=== PATIENT | female | born 1965 | race Two or more races ===

== ENCOUNTER 2018-09-25 08:51 | Observation (INO) | payer OTHER ==
[2018-09-25] MEDS ORDERED: PHENAZOPYRIDINE HCL 200 MG TAB PO ONE (11:52)
[2018-09-25] MEDS ORDERED: ACETAMINOPHEN 500 MG TAB PO ONE (11:52)
[2018-09-25] MEDS ORDERED: ceFAZolin 2 GM/DEXTROSE 100 ML IV ONE (11:52)
[2018-09-25] MEDS ORDERED: GABAPENTIN 300 MG CAP PO ONE (11:52)
[2018-09-25] MEDS ORDERED: LIDOCAINE 1% 2 ML INJ ID PRN (11:53)
[2018-09-25] MEDS ORDERED: LR 1,000 ML IV ONE (11:53)
[2018-09-25] MEDS ORDERED: BUPIVACAINE/EPI 0.5% 30 ML SDV ONE ×2 (12:52→13:01)
--- NOTE | 2018-09-25 12:59 | PDHPUP ---
History & Physical Update H&P update statement: This history and physical update is based on an assessment of the patient which was completed after admission or registration (within 24 hours), but prior to the surgery/procedure. H&P update: H&P reviewed & patient examined, no change in patient's condition since H&P completed
[2018-09-25] MEDS ORDERED: MIDAZOLAM 2 MG/2 ML VIAL ONE (14:53)
--- NOTE | 2018-09-25 14:53 | PDANEPAE ---
ANE History of Present Illness menorrhagia and endometriosis, here for robotic assist for ablation and hysterectomy ANE Past Medical History - Cardiovascular History Hx Hypertension: Yes Hx Arrhythmias: No Hx Chest Pain: No Hx Coronary Artery / Peripheral Vascular Disease: No Hx CHF / Valvular Disease: No Hx Palpitations: No - Pulmonary History Hx COPD: No Hx Asthma/Reactive Airway Disease: No Hx Recent Upper Respiratory Infection: No Hx Oxygen in Use at Home: No Hx Sleep Apnea: No Sleep Apnea Screening Result - Last Documented: Positive Pulmonary History Comment: SINUS INFECTION 06/2018 TREATED WITH ANTIBIOTICS - Neurologic History Hx Cerebrovascular Accident: No Hx Seizures: No Hx Dementia: No - Endocrine History Hx Diabetes: Yes Endocrine History Comment: NIDDM. HYPOTHYROID/GRAVES DX - Renal History Hx Renal Disorders: Yes Renal History Comment: UA INCONT/URGENCY - Liver History Hx Hepatic Disorders: No - Neurological & Psychiatric Hx Hx Neurological and Psychiatric Disorders: Yes Neurological / Psychiatric History Comment: DEPRESSION. SITUATIONAL ANXIETY - Cancer History Hx Cancer: No - Congenital Disorder History Hx Congenital Disorders: No - GI History Hx Gastrointestinal Disorders: Yes Gastrointestinal History Comment: REFLUX. HIATIAL HERNIA - Other Health History Other Health History: ENDOMETROSIS. MISSING TEETH - Chronic Pain History Chronic Pain: Yes (LT KNEE,ABDOMINAL DISCOMFORT) - Surgical History Prior Surgeries: LT KNEE SCOPE 2017. REMVL FATTY TUMOR FROM BACK. OVARIAN CYSTS ANE Review of Systems Review of Systems: - Exercise capacity METS (RN): 4 METS ANE Patient History - Allergies Allergies/Adverse Reactions: Penicillins Allergy (Verified 09/12/18 10:48) RASH/SWELLING Sulfa (Sulfonamide Antibiotics) Allergy (Verified 09/12/18 10:48) Vomiting - Home Medications Home Medications: Carboxymethylcellulose 1% [Refresh Celluvisc (*)] 1 drop EACHEYE DAILY PRN 09/12 [Last Taken 09/22/18] Cholecalciferol Vit D3 [Vitamin D3 (*)] 1,000 units PO DAILY 09/12/18 [Last Taken 09/24/18] Cyanocobalamin [Vitamin B12 (*)] 2,500 mcg PO DAILY 09/12/18 [Last Taken ] Esomeprazole Mag Trihydrate [Nexium] 40 mg PO DAILY 09/12/18 [Last Taken 07:30] Hydrochlorothiazide [HCTZ (*)] 25 mg PO DAILY 09/12/18 [Last Taken 09/24/18] Ibuprofen/Pseudoephedrine HCl [Advil Cold & Sinus Caplet] 1 each PO DAILY PRN [Last Taken 09/15/18] Levothyroxine [Synthroid 112 mcg (*)] 112 mcg PO DAILY06 09/12/18 [Last Taken 07:30] Lisinopril [Zestril 10 mg (*)] 10 mg PO DAILY 09/12/18 [Last Taken 09/25/18 07: 30] Naproxen Sodium [Aleve 220 MG (*)] 220 mg PO BID PRN 09/12/18 [Last Taken ] glyBURIDE [Glyburide] 5 mg PO BID 09/12/18 [Last Taken 09/24/18] metFORMIN HCL [Glucophage 500 mg (*)] 500 mg PO BIDMEAL 09/12/18 [Last Taken 03/06] traZODone [traZODONE 100MG (*)] 100 mg PO HS 09/12/18 [Last Taken 09/24/18] - NPO status NPO Since - Liquids (Date): 09/25/18 NPO Since - Liquids (Time): 10:00 NPO Since - Solids (Date): 09/24/18 NPO Since - Solids (Time): 20:30 - Smoking Hx Smoking Status: Former smoker ANE Labs/Vital Signs - Vital Signs Blood Pressure: 131/86 Heart Rate: 76 Respiratory Rate: 24 O2 Sat (%): 97 Height: 167.64 cm Weight: 115.666 kg ANE Physical Exam - Airway Neck exam: FROM Mallampati Score: Class 2 Mouth exam: normal dental/mouth exam - Pulmonary Pulmonary: no respiratory distress, no rales or rhonchi - Cardiovascular Cardiovascular: regular rate and rhythym, no murmur, rub, or gallop - ASA Status ASA Status: III ANE Anesthesia Plan Anesthesia Plan: general endotracheal anesthesia Total IV Anesthesia: No
[2018-09-25] MEDS ORDERED: MIDAZOLAM 2 MG/2 ML VIAL IVP ONE (14:55)
[2018-09-25] MEDS ORDERED: LIDOCAINE 2% 2 ML INJ ONE (15:04)
[2018-09-25] MEDS ORDERED: PROPOFOL 200 MG/20 ML VIAL ONE (15:05)
[2018-09-25] MEDS ORDERED: fentaNYL 100 MCG/2 ML INJ ONE ×3 (15:05→16:57)
[2018-09-25] MEDS ORDERED: NALOXONE HCL 0.4 MG/ML INJ IVP PRN (16:05)
[2018-09-25] MEDS ORDERED: PROMETHAZINE HCL 25 MG/ML INJ IVP PRN (16:05)
[2018-09-25] MEDS ORDERED: ONDANSETRON 4 MG/2 ML VIAL IVP PRN ×2 (16:05→16:41)
[2018-09-25] MEDS ORDERED: HYDROmorphONE/DILAUDID 1 MG/ML INJ IVP PRN ×2 (16:05→16:41)
[2018-09-25] MEDS ORDERED: ONDANSETRON 4 MG/2 ML VIAL ONE (16:18)
--- NOTE | 2018-09-25 16:40 | POSTOPPROG ---
Post Op Note Date of Operation: 09/25/18 Surgeon: Oscar Ospina Assistant Passenger Locomotive Engineer: Nava Das Anesthesia: GET(General Endotracheal) Pre-op Diagnosis: heavy and painful menses, stress incontinenece Post-op Diagnosis: Same + endometriosis Procedure: Robotic hyst/BSO, excise endo, bilat ureterolysis, Retropubic sling Findings: No ureteral or bladder injury seen Inf/Abcess present in the surg proc area at time of surgery?: No EBL: Minimal Complications: None
[2018-09-25] MEDS ORDERED: HYDROCODONE/APAP 5/325 TAB PO PRN (16:41)
[2018-09-25] MEDS ORDERED: ONDANSETRON DISINTEGRATING 4 MG TAB PO PRN (16:41)
[2018-09-25] MEDS ORDERED: OXYCODONE/APAP 5/325 TAB PO PRN (16:41)
--- NOTE | 2018-09-25 16:51 | POSTANESTH ---
Post Anesthetic Evaluation Cardiovascular Status: Similar to Pre-Op Cond Respiratory Status: Similar to Pre-op Cond. Level of Consciousness/Mental Status: Alert and Oriented Pain Control: Adequate, Prn Tx Ordered Nausea/Vomiting Control: Adequate, Prn Tx Ordered Complications Possibly Related to Anesthesia: None Noted
[2018-09-25] MEDS ORDERED: HYDROmorphONE/DILAUDID 1 MG/ML INJ ONE (16:56)
[2018-09-25] MEDS: fentaNYL 100 MCG/2 ML INJ IVP PRN ×2 (16:58→17:05)
[2018-09-25] MEDS ORDERED: LR 1,000 ML IV SCH (17:00)
[2018-09-25] MEDS: KETOROLAC 30 MG/1 ML SDV IVP SCH (18:10)
[2018-09-25] MEDS ORDERED: traZODone 100 MG TAB PO SCH (21:00)
--- NOTE | 2018-09-25 21:31 | GOP ---
[f rep st] OPERATIVE REPORT DATE OF OPERATION: 09/25/2018 SURGEON: Oscar Ospina MD RESTAURANT TEAM MEMBER: Nava Das CFA. ANESTHESIA: General. PREOPERATIVE DIAGNOSIS: 1. Dysmenorrhea. 2. Menorrhagia. 3. Uterine prolapse. 4. Stress urinary incontinence. POSTOPERATIVE DIAGNOSIS: 1. Dysmenorrhea. 2. Menorrhagia. 3. Uterine prolapse. 4. Stress urinary incontinence. PROCEDURE PERFORMED: 1. Robotic-assisted total laparoscopic hysterectomy, bilateral salpingo- oophorectomy. 2. Excision of endometriosis in posterior cul-de-sac, bilateral pelvic sidewalls. 3. Bilateral ureterolysis. 4. Uterosacral ligament colpopexy. 5. Retropubic sling. FINDINGS: SPECIMENS: 1. Uterus, bilateral tubes and ovaries. 1. Peritoneum with endometriosis. 2. ESTIMATED BLOOD LOSS: 30 mL. DESCRIPTION OF PROCEDURE: The patient was taken to the operating room. She was identified. General anesthesia was administered and found to be adequate. She was placed in the lithotomy position and prepared and draped in normal sterile fashion. A Junior catheter was placed in her bladder. A VCare uterine manipulator was placed into the endometrial cavity and sutured to the cervix. An 8 mm infraumbilical incision. The Veress needle, CO2 gas flowing, was advanced into the peritoneal cavity. The abdomen was then insufflated with carbon dioxide gas. The 8 mm trocar followed by the laparoscope were then inserted. Two lateral ports were placed in the right and one on the left under direct visualization. The upper abdomen was unremarkable. The patient was then placed in Trendelenburg position and the da Dami robot docked on the left side. The instruments were brought into the abdominal cavity under direct visualization. She was noted to have endometriosis in the posterior cul-de-sac , bilateral pelvic sidewalls overlying both ureters. She had several areas of adhesions. The posterior cul-de-sac peritoneum from the distal rectum up to the cervix bilaterally to the uterosacral ligaments was then excised. She required a bilateral ureterolysis to safely remove the endometriosis of the pelvic side mcgrath. The pelvic peritoneum at the pelvic brims was incised. The ureters were gently dissected free and lateralized off the overlying peritoneum and endometriosis from the pelvic brim down to the bladder. Once this was accomplished, the entire pelvic sidewall peritoneum was excised. The left round ligament was divided. The anterior leaf of the broad ligament was then incised toward the bifurcation of the left common iliac vessels. The infundibulopelvic vessels were then cauterized and transected. The bladder was dissected off the cervix and upper vagina. The left uterine vasculature was then cauterized and transected. The exact same procedure was performed on the patient's right side. A circumferential colpotomy incision was made with the hot evelin and all specimens were removed through the vagina. The vaginal cuff was closed with a running suture of 0 V-Loc 180. A bilateral uterosacral ligament colpopexy was performed by attaching the lateral aspects of the vaginal cuff to the ipsilateral uterosacral ligaments near the coccygeal- sacrospinous ligament complexes. The pelvis was irrigated with sterile saline and hemostasis was present. The robot was then undocked. The skin was closed with 4-0 Monocryl and surgical adhesive. A midurethral incision was made with a scalpel. Tunnels were created bilaterally out towards the obturator internus muscles. A stab incision was made over the left obturator notch. The curved trocar was placed through this incision and redirected around the ischial pubic rami. Given the patient's body habitus, it was difficult to pass through the vaginal incision without entering the lateral sulci. As a result, a decision was made to convert to a retropubic approach. The retropubic trocar with the sling attached was advanced to the left tunnel, redirected around the pubic symphysis and out through a suprapubic stab incision. The exact same procedure was performed on the patient's right side. Cystoscopy was performed. Both ureters had vigorous jets of urine. There was no evidence of bladder, nor urethral injury seen. There was no suture, nor mesh within the bladder, nor urethra. The sling was then adjusted to allow a small midurethral gap. The vaginal epithelium was closed with 2-0 Vicryl, the skin with 4-0 Monocryl. Anesthesia was reversed. The patient was taken to PACU awake in stable condition. COMPLICATIONS: None. DISPOSITION: Patient stable to PACU. /[id number]/MODL MTDD
[2018-09-25] MEDS: SIMETHICONE 80 MG TAB CHEW PO SCH (21:43)
[2018-09-25] MEDS: DOCUSATE SODIUM 100 MG CAP PO SCH (21:44)
[2018-09-25] MEDS: metFORMIN HCL 500 MG TAB PO SCH (21:44)
[2018-09-25] MEDS: GABAPENTIN 100 MG CAP PO SCH (21:44)
[2018-09-26] MEDS: KETOROLAC 30 MG/1 ML SDV IVP SCH ×3 (00:17→14:54)
[2018-09-26 04:17] VITALS: BP 133/80
[2018-09-26 05:10] LABS: PLATELET COUNT 205 10^3/uL (150-400)
[2018-09-26] MEDS ORDERED: LEVOTHYROXINE 112 MCG TAB PO SCH (06:00)
[2018-09-26] MEDS: metFORMIN HCL 500 MG TAB PO SCH (08:51)
[2018-09-26] MEDS: GABAPENTIN 100 MG CAP PO SCH (08:52)
[2018-09-26] MEDS ORDERED: LISINOPRIL 10 MG TAB PO SCH (09:00)
--- NOTE | 2018-09-26 10:27 | GDS ---
[f rep st] DISCHARGE SUMMARY DISCHARGE DIAGNOSES: 1. Menorrhagia. 2. Dysmenorrhea. 3. Endometriosis. 4. Uterine prolapse. 5. Stress urinary incontinence. PROCEDURES: 1. Robotic-assisted total laparoscopic hysterectomy, bilateral salpingo-oophorectomy. 2. Excision of endometriosis. 3. Bilateral ureterolysis. 4. Uterosacral ligament colpopexy. 5. Retropubic sling. 6. Cystoscopy. HOSPITAL COURSE: The patient is a 52-year-old female, with heavy and painful menses. She was taken to the operating room on 09/25/2018, where she underwent the above-mentioned procedures without compl ications. Her postoperative course was relatively uneventful. The morning after surgery, she was ambulating, v oiding and tolerating a general diet. She was discharged home on postoperative day #1, with Christmas an d ibuprofen for pain and estradiol 1 mg for hormone replacement. She is to follow up in the office 2 weeks after discharge. /[id number]/MODL
[2018-09-26] MEDS: DOCUSATE SODIUM 100 MG CAP PO SCH (14:52)
[2018-09-26] MEDS: SIMETHICONE 80 MG TAB CHEW PO SCH (14:53)
== END 2018-09-26 11:00 | disposition home or self-care (01) ==
LOC: F3N 11:30 → FOB 18:00
PROVIDERS: ADMIT Obstetrics & Gynecology; ATTEND Obstetrics & Gynecology
DX: N80.3 Endometriosis of pelvic peritoneum (principal); N92.0 Excessive and frequent menstruation with regular cycle; N39.3 Stress incontinence (female) (male); N81.2 Incomplete uterovaginal prolapse; N94.6 Dysmenorrhea, unspecified; I10 Essential (primary) hypertension; E11.9 Type 2 diabetes mellitus without complications; E03.9 Hypothyroidism, unspecified; K21.9 Gastro-esophageal reflux disease without esophagitis; K44.9 Diaphragmatic hernia without obstruction or gangrene; F32.9 Major depressive disorder, single episode, unspecified; F41.9 Anxiety disorder, unspecified; Z87.891 Personal history of nicotine dependence; Z88.0 Allergy status to penicillin; Z88.2 Allergy status to sulfonamides
CPT/HCPCS: 51992; 57425; 58571; 58662; G0378; C1771; J0690; J1170; J1885; J2250; J2405; J2704; J3010